=== PATIENT | female | born 1995 | race Asian ===

== ENCOUNTER → 2022-08-19 11:14 | Outpatient (CLI) | payer OTHER, SELFPAY ==
[2022-08-19 14:26] LABS: Urine N gonorrhoeae NOT DETECTED
[2022-08-19 14:27] LABS: Urine Chlamydia DETECTED
== END ==
PROVIDERS: Visit Provider Nurse Practitioner Family
DX: N94.9 Unspecified condition associated with female genital organs and menstrual cycle (principal); N89.8 Other specified noninflammatory disorders of vagina
CPT/HCPCS: 87210; 87491; 87591

== ENCOUNTER → 2022-08-20 15:21 | Outpatient (CLI) | payer OTHER, SELFPAY ==
[2022-08-20 17:04] LABS: Hepatitis B Surface Antigen NEGATIVE s/c (NEGATIVE)
[2022-08-20 17:36] LABS: HIV 1 & 2 Ab/Ag 4th Gen Combo NEGATIVE (NEGATIVE); Hep C Virus Ab w/Reflex Quant NEGATIVE s/c (NEGATIVE)
[2022-08-22 03:09] LABS: RPR Screen Non Reactive (Non Reactive)
[2022-08-22 08:31] LABS: HSV 2 IGG AB < 0.91 index (0.00-0.90)
== END ==
PROVIDERS: Referring Provider Nurse Practitioner Family; Visit Provider Nurse Practitioner Family
DX: N89.8 Other specified noninflammatory disorders of vagina (principal)
CPT/HCPCS: 36415; 86592; 86695; 86696; 86803; 87340; 87389

== ENCOUNTER → 2022-12-15 13:26 | Outpatient (CLI) | payer OTHER, SELFPAY ==
[2022-12-15 14:39] LABS: Appearance Urine UA CLEAR; Bilirubin Urine UA NEGATIVE (NEGATIVE); Color Urine UA YELLOW; Glucose Urine UA NEGATIVE (Negative); Ketones Urine UA NEGATIVE (NEGATIVE); Leukocyte Esterase Urine UA NEGATIVE (NEGATIVE); Nitrite Urine UA NEGATIVE (Negative); Occult Blood Urine UA NEGATIVE (Negative); Protein Urine UA NEGATIVE (Negative); Specific Gravity Urine UA 1.015 (1.000-1.035)
[2022-12-15 14:41] LABS: Pregnancy Test Urine Negative (Negative)
[2022-12-15 14:45] LABS: pH Urine UA 7.5 (4.5-8.0)
[2022-12-15 14:46] LABS: Bacteria Urine Occasional (0-1); Culture Indicated Urine Specimen Cultured; RBC Urine None Seen (0-5/HPF); Squamous Epithelial Cell Urine 5-10 /HPF (0-5/HPF); WBC Urine 5-10/HPF (0-5/HPF)
[2022-12-15 16:07] LABS: Urine N gonorrhoeae NOT DETECTED
[2022-12-15 16:10] LABS: Urine Chlamydia NOT DETECTED
== END ==
PROVIDERS: Visit Provider Registered Nurse
DX: N89.8 Other specified noninflammatory disorders of vagina (principal)
CPT/HCPCS: 81001; 81025; 87086; 87210; 87491; 87591

== ENCOUNTER → 2023-09-25 08:05 | Outpatient (CLI) | payer OTHER, SELFPAY ==
--- NOTE | 2023-09-25 08:07 | DI.US.S_ITS ---
LIMITED ULTRASOUND OF LEFT BREAST: 09/25/2023 CLINICAL: Occasional left breast pain. No prior exams were available for comparison. Color flow and real-time ultrasound of the left breast 12 o'clock region were performed. Blair scale images of the real-time examination were reviewed. There is a benign post-surgical scar in the left breast at 12 o'clock anterior depth. This correlates with area of clinical concern. Patient complains of twinges in the area without significant pain. Color flow imaging demonstrates that there is no vascularity present. IMPRESSION: BENIGN There is no sonographic evidence of malignancy. Expected appearance of a post-surgical scar in the left breast. Findings are benign. Clinical follow up is recommended for symptoms as needed. Screening mammography beginning at age 40 is recommended. Findings and recommendations were conveyed to the patient at time of exam. This exam was interpreted at Station ID: [id number]. Electronically Signed By: Alyssia cabral/:09/25/2023 08:54:42 letter sent: Normal Exam Ultrasound BI-RADS: 2 Benign
== END ==
LOC: US 08:06
PROVIDERS: Referring Provider Physician Assistant; Visit Provider Physician Assistant
DX: N64.4 Mastodynia (principal); L90.5 Scar conditions and fibrosis of skin
CPT/HCPCS: 76642

== ENCOUNTER 2024-02-11 18:48 | Emergency (ER) | payer OTHER, SELFPAY ==
[2024-02-11 18:51] VITALS: BP 135/95; PULSE 80; RESP 17; TEMP 36.1; O2SAT 100; BMI 33.6
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
[2024-02-11] MEDS: CYCLOBENZAPRINE 10 MG PREPACK 1 BOTTLE MISC (22:41)
[2024-02-11 22:44] VITALS: BP 130/79; PULSE 75; RESP 18; O2SAT 97
== END 2024-02-11 22:47 | disposition home or self-care (01) ==
PROVIDERS: Emergency Provider Emergency Medicine
DX: S16.1XXA Strain of muscle, fascia and tendon at neck level, initial encounter (principal); V89.2XXA Person injured in unspecified motor-vehicle accident, traffic, initial encounter
CPT/HCPCS: 99282; 99283